=== PATIENT | female | born 1975 | race Caucasian/White ===

== ENCOUNTER 2023-07-07 17:58 | Emergency (ER) | payer SELFPAY ==
[~2023-07-07] VITALS: Ht 160 cm; Wt 65.9 kg
[2023-07-07 18:08] VITALS: TEMP 98.2
[2023-07-07 18:52] VITALS: BP 116/70; PULSE 72
== END 2023-07-07 18:58 | disposition home or self-care (01) ==
LOC: COL.ER 17:58
DX: M79.631 Pain in right forearm (principal); G89.18 Other acute postprocedural pain; F17.290 Nicotine dependence, other tobacco product, uncomplicated